=== PATIENT | male | born 1990 | race Two or more races ===

== ENCOUNTER 2016-12-01 23:07 | Inpatient (IN) | payer MEDICAID ==
[~2016-12-01] VITALS: Ht 177.8 cm; Wt 83.9 kg
[2016-12-01] MEDS ORDERED: CEFTRIAXONE 1GM BAG (ER ONLY) 50 ML IV ONE (23:30)
[2016-12-01] MEDS ORDERED: IV NS 0.9% 1,000 ML BAG IV ONE (23:30)
[2016-12-01] MEDS ORDERED: ONDANSETRON HCL/PF - ER 4 MG/2 ML VIAL IV ONE (23:30)
[2016-12-01] MEDS ORDERED: HYDROMORPHONE 1 MG/1 ML DISP.SYRIN IV ONE (23:30)
[2016-12-01] MEDS ORDERED: CLINDAMYCIN 900 MG in IV D5W 100 ML IV ONE (23:30)
[2016-12-01 23:52] LABS: BASOPHILS % (AUTO) 0.2 % (0.0-2.0); DIFF TOTAL % 100 %; EOSINOPHILS # (AUTO) 0.2 /CMM (0.0-0.7); EOSINOPHILS % (AUTO) 1.7 % (0.0-6.0); HEMATOCRIT 40 % (39-51); HEMOGLOBIN 12.4 g/dL (13.5-17.5); LYMPHOCYTES # (AUTO) 2.6 /CMM (0.8-4.8); MEAN CORPUSCULAR HEMOGLOBIN 20 PG (26.0-33.0); MEAN CORPUSCULAR HGB CONC 32 g/dl (31.0-36.0); MEAN CORPUSCULAR VOLUME 64 fL (80-96); MONOCYTES # (AUTO) 0.8 /CMM (0.1-1.30); MONOCYTES % (AUTO) 7.3 % (2.0-12.0); NEUTROPHILS # (AUTO) 7.7 /CMM (1.8-8.9); NEUTROPHILS % (AUTO) 67.8 % (43.0-81.0); PLATELET COUNT (AUTO) 260 /CMM (150-450); RED BLOOD CELL COUNT(AUTO) 6.15 MIL/uL (4.5-6.0); WHITE BLOOD COUNT (AUTO) 11.4 K/uL (4.3-11.0)
[2016-12-02] MEDS ORDERED: CEFTRIAXONE 1GM BAG (ER ONLY) 50 ML IV ONE (00:01)
[2016-12-02] MEDS ORDERED: HYDROMORPHONE 1 MG/1 ML DISP.SYRIN ONE ×2 (00:01→04:29)
[2016-12-02] MEDS ORDERED: ONDANSETRON HCL/PF 4 MG/2 ML VIAL ONE (00:01)
[2016-12-02] MEDS ORDERED: IV NS 0.9% 1,000 ML ONE (00:02)
[2016-12-02] MEDS ORDERED: IV SET PRIMARY 1 EA INFUS.SET MC ONE ×2 (00:02→00:43)
[2016-12-02 00:05] LABS: CALCIUM, SERUM 8.7 mg/dL (8.5-10.1); CREATININE 1.1 mg/dL (0.6-1.3); POTASSIUM 3.8 mmol/L (3.5-5.1)
[2016-12-02 00:08] LABS: INR 0.98 (0.87-1.13); PROTHROMBIN TIME 10.6 SECS (9.5-12.7)
[2016-12-02 00:12] LABS: LACTIC ACID 0.4 mmol/L (0.4-2.0)
[2016-12-02 00:19] LABS: ALBUMIN 4.1 g/dL (3.4-5.0); BILIRUBIN,DIRECT 0.1 mg/dL (0.0-0.2); BILIRUBIN,TOTAL 0.4 mg/dL (0.2-1.0); INDIRECT BILIRUBIN 0.3 mg/dL (0.0-1.1)
[2016-12-02] MEDS ORDERED: IV NS 0.9% 250 ML IV ONE (00:36)
[2016-12-02] MEDS ORDERED: IOHEXOL-300 100 ML VIAL IV ONE (00:37)
[2016-12-02] MEDS ORDERED: IV D5W 100 ML IV ONE (00:43)
[2016-12-02] MEDS ORDERED: CLINDAMYCIN 900 MG/6 ML VIAL ONE (00:43)
[2016-12-02 03:10] VITALS: BP 134/78
[2016-12-02 03:15] VITALS: BP 134/78
[2016-12-02] MEDS ORDERED: ONDANSETRON HCL/PF 4 MG/2 ML VIAL IV PRN (04:00)
[2016-12-02] MEDS ORDERED: ACETAMINOPHEN 325 MG TABLET PO PRN (04:00)
[2016-12-02] MEDS ORDERED: HYDROCODONE/APAP 5/325MG 1 EACH TABLET PO PRN (04:00)
[2016-12-02] MEDS ORDERED: PIPERACILLIN /TAZOBACTAM 3.375 G VIAL IV ONE (04:29)
[2016-12-02] MEDS ORDERED: IV D5W 50 ML IV ONE (04:30)
[2016-12-02] MEDS ORDERED: SECONDARY IV SET 1 EA INFUS.SET MC ONE (04:30)
[2016-12-02] MEDS: HYDROMORPHONE 1 MG/1 ML DISP.SYRIN IV PRN ×4 (04:40→21:07)
[2016-12-02] MEDS ORDERED: IV SET PRIMARY PUMP SET 1 EA INFUS.SET MC ONE (04:52)
[2016-12-02] MEDS ORDERED: IV PREMIX D5 NS + KCL 1,000 ML IV ONE (04:57)
[2016-12-02] MEDS ORDERED: PIPERACILLIN /TAZOBACTAM 3.375 G in IV D5W 50 ML IV SCH (05:00)
[2016-12-02] MEDS: Potassium Chloride 20 MEQ in IV D5/ 0.9% NACL 1,000 ML IV PRN ×2 (05:07→22:02)
[2016-12-02 07:06] LABS: BASOPHILS % (AUTO) 0.2 % (0.0-2.0); DIFF TOTAL % 100 %; EOSINOPHILS # (AUTO) 0.2 /CMM (0.0-0.7); EOSINOPHILS % (AUTO) 1.9 % (0.0-6.0); HEMATOCRIT 40 % (39-51); HEMOGLOBIN 12.3 g/dL (13.5-17.5); LYMPHOCYTES # (AUTO) 2.2 /CMM (0.8-4.8); LYMPHOCYTES % (AUTO) 21.4 % (20.0-44.0); MEAN CORPUSCULAR HEMOGLOBIN 20 PG (26.0-33.0); MEAN CORPUSCULAR HGB CONC 31 g/dl (31.0-36.0); MEAN CORPUSCULAR VOLUME 64 fL (80-96); MONOCYTES # (AUTO) 0.8 /CMM (0.1-1.30); MONOCYTES % (AUTO) 8.4 % (2.0-12.0); NEUTROPHILS # (AUTO) 6.9 /CMM (1.8-8.9); NEUTROPHILS % (AUTO) 68.1 % (43.0-81.0); PLATELET COUNT (AUTO) 243 /CMM (150-450); RED BLOOD CELL COUNT(AUTO) 6.17 MIL/uL (4.5-6.0); WHITE BLOOD COUNT (AUTO) 10.1 K/uL (4.3-11.0)
[2016-12-02 07:34] LABS: CALCIUM, SERUM 8.8 mg/dL (8.5-10.1)
[2016-12-02 08:00] VITALS: BP 134/71
[2016-12-02 08:45] LABS: BAND % (MANUAL) 2 % (0.0-5.0); EOSINOPHILS % (MANUAL) 3 % (0-4); LYMPHOCYTES % (MANUAL) 22 % (16-48)
[2016-12-02 08:46] LABS: ANISOCYTOSIS 2+; HYPOCHROMASIA 1+; MICROCYTOSIS 2+; PLATELET ESTIMATE ADEQUATE
[2016-12-02] MEDS: PIPERACILLIN /TAZOBACTAM 3.375 G in IV D5W 50 ML IV SCH ×2 (11:16→17:09)
[2016-12-02 16:00] VITALS: BP_SYST 138; BP_DIAS 32; BP_DIAS 62
[2016-12-02 20:00] VITALS: BP 147/73
[2016-12-03] MEDS: PIPERACILLIN /TAZOBACTAM 3.375 G in IV D5W 50 ML IV SCH ×4 (00:22→18:05)
[2016-12-03] MEDS: HYDROMORPHONE 1 MG/1 ML DISP.SYRIN IV PRN ×4 (02:23→21:40)
[2016-12-03 08:00] VITALS: BP 137/67
[2016-12-03] MEDS: Potassium Chloride 20 MEQ in IV D5/ 0.9% NACL 1,000 ML IV PRN (14:53)
[2016-12-03 16:00] VITALS: BP 122/65
[2016-12-03 20:00] VITALS: BP 128/70
[2016-12-04] MEDS: PIPERACILLIN /TAZOBACTAM 3.375 G in IV D5W 50 ML IV SCH ×3 (00:40→11:06)
[2016-12-04] MEDS: HYDROMORPHONE 1 MG/1 ML DISP.SYRIN IV PRN ×3 (03:09→12:18)
[2016-12-04] MEDS: Potassium Chloride 20 MEQ in IV D5/ 0.9% NACL 1,000 ML IV PRN (05:36)
[2016-12-04 08:00] VITALS: BP 141/64
[2016-12-04] MEDS ORDERED: CLIN300C97 PO (08:54)
[2016-12-04] MEDS ORDERED: HYDR-552 PO (08:54)
== END 2016-12-04 15:41 | disposition home or self-care (01) | DRG 383 ==
LOC: ER 23:14 → MED 12-02 02:24
PROVIDERS: ADMIT Internal Medicine; ATTEND Internal Medicine
DX: L03.211 Cellulitis of face (principal); E86.0 Dehydration; K04.7 Periapical abscess without sinus; I95.1 Orthostatic hypotension
CPT/HCPCS: 36415; 70487-TC; 80048-TC; 80076-TC; 83605-TC; 85025-TC; 85730-TC; 87040-TC; 87081-TC; A4606; J0696; J1170; J2405; J2543; J3480; J3490; J7030; J7042; J7050; J7060; Q9967; Z7610